=== PATIENT | male | born 1965 | race American Indian/Alaskan Native ===

== ENCOUNTER 2017-08-15 12:31 | Inpatient (IN) | payer MEDICAID, OTHER ==
--- NOTE | 2017-08-15 12:58 | C.PDOC ---
History Of Present Illness 52 yr old male with history of heroin, cocaine abuse, alcohol abuse, depression , presents to the ER requesting detox. Patient admits, was clean for 2 years, " had some problem with and started to use drugs again. Lost my job, homeless now". Patient admits to suicidal ideation. Otherwise, Pt denies fever, chills, known trauma or injury, headache, dizziness, chest pain, SOB, dyspnea, palpitation, abd. pain, nausea, vomiting, back pain, UTI sx. Ambulate to ED for evaluation, appears appropriate, not in nay apparent distress. Time Seen by Provider: 08/15/17 12:38 Chief Complaint (Nursing): Psychiatric Evaluation History Per: Patient History/Exam Limitations: no limitations Onset/Duration Of Symptoms: Days Past Medical History Reviewed: Historical Data, Nursing Documentation, Vital Signs Vital Signs: Last Vital Signs Temp 97.9 F 08/15/17 16:16 Pulse 60 08/15/17 16:16 Resp 20 08/15/17 16:16 BP 103/61 08/15/17 16:16 Pulse Ox 99 08/15/17 16:16 Family History: States: No Known Family Hx - Social History Hx Tobacco Use: Yes Hx Alcohol Use: Yes Hx Substance Use: Yes (Heroin and Cocaine) - Immunization History Hx Influenza Vaccination: No Hx Pneumococcal Vaccination: No Review Of Systems Except As Marked, All Systems Reviewed And Found Negative. Cardiovascular: Negative for: Chest Pain Respiratory: Negative for: Shortness of Breath Gastrointestinal: Negative for: Nausea, Vomiting Neurological: Negative for: Weakness, Numbness Psych: Positive for: Depression, Suicidal ideation Physical Exam - Physical Exam Appears: Non-toxic, No Acute Distress Skin: Warm, Dry, No Rash Head: Atraumatic, Normacephalic Eye(s): bilateral: PERRL Nose: No Flaring, No Discharge Oral Mucosa: Moist Throat: No Erythema, No Exudate, No Drooling Neck: Trachea Midline, No Midline Cervical Tenderness, No Paracervical Tenderness, No Step Off Deformity, Supple Cardiovascular: Rhythm Regular, No Murmur Respiratory: No Decreased Breath Sounds, No Rales, No Rhonchi, No Stridor, No Wheezing Gastrointestinal/Abdominal: Soft, No Tenderness, No Distention, No Guarding Back: No CVA Tenderness Extremity: Normal ROM, No Pedal Edema, No Deformity, No Swelling Neurological/Psych: Oriented x3, Normal Speech, Normal Motor, Normal Sensation, Normal Reflexes ED Course And Treatment - Laboratory Results Result Diagrams: 08/15/17 13:23 08/15/17 13:23 O2 Sat by Pulse Oximetry: 100 (RA) Pulse Ox Interpretation: Normal Progress Note: Pt remained stable during the ED evaluation. Blood work review and appears noraml. Pt is medically cleared for psych evaluation. After pt was evaluated by CRisis at 17:02, admission to psych floor s/o with Dx : Major depression, cocaine abuse arranged. 1:1 OBS dispo as patient will be moved upstairs. Medical Decision Making Medical Decision Making: PLAN: * Alcohol Serum * Drug Screen * CBC * CMP * Urinalysis Disposition - Disposition Disposition: HOSPITALIZED Disposition Time: 17:03 Condition: STABLE Forms: [facility] ([place]) - Clinical Impression Clinical Impression: Major depression, Cocaine dependence - PA / TYPE CASTER / Resident Statement MD/DO has reviewed & agrees with the documentation as recorded. - Scribe Statement The provider has reviewed the documentation as recorded by the Scribe Paula Fierro All medical record entries made by the Scribe were at my direction and personally dictated by me. I have reviewed the chart and agree that the record accurately reflects my personal performance of the history, physical exam, medical decision making, and the department course for this patient. I have also personally directed, reviewed, and agree with the discharge instructions and disposition.
[2017-08-15 13:26] LABS: BASO # 0.1 K/uL (0.0-0.2); BASO % 1.1 % (0.0-2.0); EOS # 0.1 K/uL (0.0-0.7); EOS % 1.3 % (0.0-4.0); HEMATOCRIT 41.7 % (35.0-51.0); LYMPH # 1.6 K/uL (1.0-4.3); MEAN CELL VOLUME 90.1 fL (80.0-94.0); MEAN CORPUSCULAR HGB CONC 32.2 g/dL (33.0-37.0); MEAN PLATELET VOLUME 7.2 fL (7.2-11.7); MONO # 0.5 K/uL (0.0-0.8); MONO % 10.2 % (0.0-10.0); NRBC % 0.2 % (0.0-2.0)
[2017-08-15 13:32] LABS: RBC URINE 2 /hpf (0-3); URINE BILIRUBIN NEGATIVE (NEGATIVE); URINE BLOOD 1+ (NEGATIVE); URINE COLOR Yellow (YELLOW); URINE GLUCOSE (UA) NORMAL (Normal); URINE KETONE TRACE mg/dL (NEGATIVE); URINE LEUKOCYTE ESTERASE NEG Leu/uL (Negative); URINE PROTEIN NEGATIVE (NEGATIVE); URINE UROBILINOGEN NORMAL mg/dL (0.2-1.0); WBC URINE < 1 /hpf (0-5)
[2017-08-15 14:03] LABS: ALCOHOL SERUM < 10 mg/dl (0-10); ALKALINE PHOSPHATASE 34 U/L (38-126); ALT/SGPT 39 U/L (21-72); AST/SGOT 32 U/L (17-59); BILIRUBIN,TOTAL 0.5 mg/dL (0.2-1.3); BLOOD UREA NITROGEN 8 mg/dL (9-20); CALCIUM 8.6 mg/dl (8.6-10.4); CARBON DIOXIDE 32 mmol/L (22-30); CHLORIDE 101 mmol/L (98-107); GFR AFRICAN-AMERICAN > 60; GLUCOSE,RANDOM 118 mg/dL (75-110); POTASSIUM 3.8 mmol/L (3.6-5.2); SODIUM 139 mmol/L (132-148); TOTAL PROTEIN 7.8 g/dL (6.3-8.3)
[2017-08-15 18:21] VITALS: O2SAT 97
--- NOTE | 2017-08-15 22:34 | PCM.BM ---
<Quinn Snyder - Last Filed: 08/16/17 02:18> Treatment Plan Problems - Problems identified on initial assessmt Depression Date Initiated: 08/15/17 Time Initiated: 20:00 Assessment reference: NA Status: Active Suicidal Ideation Date Initiated: 08/15/17 Time Initiated: 20:00 Assessment reference: NA Status: Monitor Opiates Abuse Date Initiated: 08/15/17 Time Initiated: 20:00 Assessment reference: NA Status: Active Treatment assets and liabiliti Patient Assests: good support system, negotiates basic needs, good past tx response Patient Liabilities: substance abuse (Cocaine, Heroin, Alcohol) - Milieu Protocol Maintain good personal hygiene: daily Encourage regular showers, daily Remind patient to perform daily oral care Conduct patient checks and document Observation sheet: Q15 minutes Maintain personal safety: every shift Educate patient to report safety concerns to staff, every shift Monitor environment for contraband/sharps Medication safety: Monitor for expected outcome, potential side effects: every shift, Assess barriers to learning: every shift, Assess readiness for medication education: every shift <Lauren Hanson - Last Filed: 08/17/17 11:20> Family Contact Family involvement: Famliy/SO not involved - Goals for Treatment Patient goals for treatment: "I want to go to rehab." Discharge/Continuing Care - Education Needs Education Needs: Patient Medication, Patient Coping Skills, Patient Placement options, Patient Community resources - Discharge Discharge Criteria: Tolerates medication w/o severe side effects, Free of Suicidal thoughts, No longer exhibiting s/s of withdrawal Discharge to:: Substance Abuse Rehab - Treatment Team Participation Discussed with Family/SO: No Was Patient/Family/SO present at Treatment Team Meeting: Yes <Esperanza Shaikh - Last Filed: 08/17/17 11:26> - Diagnosis (1) Major depression Status: Acute Interventions: 08/17/17 11:23 * Assess/adjust medications daily and /or as needed * See patient on an individual basis 7x/week to assess level of depression behaviors and stability * Discuss risks, benefits, side effects and alternatives of medications * (2) Cocaine dependence Status: Acute Interventions: 08/17/17 11:24 * Assess 7x/week regarding severity of withdrawal * Educate regarding risks, benefits, side effects and alternatives of medications * Use Motivational Interviewing for abstinence * Use CBT for relapse prevention * Medication management for withdrawal symptoms * Encourage medication assisted treatment *
--- NOTE | 2017-08-16 18:01 | PCM.PSYCH ---
Initial Psychiatric Evaluation - Initial Psychiatric Evaluation Type of Admission: Voluntary Legal Status: Capacity Chief Complaint (in patient's own words): "I'm depressed" History of Present Illness and Precipitating Events: Patient was a 52 year old, male with psychiatric hx of MDD and opioid dependence, was on Suboxone treatment, admitted in [facility] due to suicidal ideation with plan to "step in front of a truck", depression, substance abuse. Patient identified 'problems with my ' as the main precipitating factors. Patient reported current symptoms for the past 3 months. He reported worsening of his depressive symptoms since 1 month. Patient reported presence of visual hallucinations for the past 3 days. Patient reported seeing shadows. Patient reported tactile hallucinations for 3 days. Patient reported feeling 'bugs on his body' but unable to find any insects on him. Patient reported gustatory hallucinations stating "everything taste funny when I'm on this heroin and cocaine". However, he did not appeared internally preoccupied or responding to stimuli. He stated that his perceptual disturbance are better b/c he has not use cocaine today. He stated that he wants to be sober and want to quit heroin and cocaine. Patient reported current heroin, cocaine and alcohol use. Patient last used at 3 am this morning. Patient reported putting as much 'stuff' in his pipe before smoking with hopes of dying. Patient reported history of alcohol abuse in the maternal and paternal family of origin. Patient reported previous detox at [facility]. Patient reported history of inpatient psychiatric hospitalization at [facility] [place] [facility] Patient reported history of depression. Patient reported history of mental illness in the maternal family of origin. Patient reported having a cousin that committed suicide after killing his . 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 Patient refused medication for depression during outpatient and after discharge from [facility] due to the medication causing insomnia. Patient reported 1 previous suicide attempt while in his 30's by overdose (took a bottle of sleeping pills). Patient continues to report suicidal ideation in ER. He stated now he is feeling safe and improvement in his SI. Patient denied any history of homicidal ideations, attempts, gestures, plan or intent at the time of interview. Patient reported history of outpatient services for depression and substance abuse at [facility]. Patient prematurely discontinued treatment 3 months ago due to reported problems with his . Current Medications: Active Medications Generic Name Dose Route Start Last Admin Trade Name Freq PRN Reason Stop Dose Admin Clonidine HCl 0.1 mg 08/15/17 21:00 08/15/17 22:46 Catapres PO 0.1 mg Q8H PRN Administration autonomic instability, HTN Fluoxetine HCl 20 mg 08/16/17 10:00 08/16/17 10:25 Prozac PO 20 mg QAM TUSHAR Administration Hydroxyzine HCl 25 mg 08/15/17 21:00 Atarax PO Q6 PRN Anxiety Loperamide HCl 2 mg 08/15/17 22:00 Imodium PO Q8 PRN Diarrhea Methadone HCl 15 mg 08/16/17 12:45 08/16/17 12:44 Methadone PO 08/19/17 12:44 15 mg DAILY TUSHAR Administration Taper Ondansetron HCl 4 mg 08/15/17 22:00 Zofran Tab PO Q8 PRN Nausea/Vomiting Past Psychiatric History - Past Psychiatric History Previous Treatment History: Inpatient Prior Professional Help: detox and inpt and OPD psych hx Prior Psychiatric Treatment: please see HPI History of Abuse: denied History of ETOH/Drug Use: please see HPI History of Family Illness: maternal side relative had drug abuse, like cocaine use problems Pertinent Medical Hx (Current Medical&Sleep Prob, Allergies): Allergies Allergy/AdvReac Type Severity Reaction Status Date / Time No Known Allergies Allergy Verified 08/15/17 12:49 No Known Home Med [No Known Home Med] 01/21/15 denied Review of Systems - Review of Systems All systems: reviewed and no additional remarkable complaints except (HPI) - Constitutional Constitutional: Chills, Sweats, Malaise, Other (tiredness) - EENT Eyes: Discharge Ears: UNREMARKABLE Nose/Mouth/Throat: Nasal Congestion - Gastrointestinal Gastrointestinal: Abdominal Pain, Diarrhea - Genitourinary Genitourinary: UNREMARKABLE - Reproductive: Male Reproductive:Male: UNREMARKABLE - Musculoskeletal Musculoskeletal: Myalgias - Integumentary Integumentary: UNREMARKABLE - Neurological Neurological: UNREMARKABLE - Psychiatric Psychiatric: As Per HPI - Endocrine Endocrine: UNREMARKABLE Mental Status Examination - Personal Presentation Personal Presentation: Looks stated age, Dressed appropriate to season - Affect Affect: Constricted - Motor Activity Motor Activity: Psychomotor Retardation - Reliability in Providing Information Reliability in Providing Information: Good - Speech Speech: Organized - Mood Mood: Depressed, Anxious - Formal Thought Process Formal Thought Process: No Impairment - Hallucinations/Delusions Hallucinations: Visual, Other (tactile) - Obsessions/Compulsions Obsessions: No Compulsions: No - Cognitive Functions Orientation: Person, Place, Situation, Time Sensorium: Alert Attention/Concentration: Attentive Abstract Thinking: [place] Judgement: Intact, as evidence by: Good judgement Memory: Recent intact, as evidence by: Ability to recall events of the day - Risk Risk: Suicidal (plan to jump infront of truck/ traffic) - Strength & Assets Inventory Strength & Assets Inventory: Intelligence, Family support (sister), Employment history, Interests/hobbies, Spiritual affiliations, Cooperative - Limitations Limitations: Other (ch drug use) DSM 5 DX - DSM 5 DSM 5 Diagnosis: MDD, MODERATE, OPIOID USE DISORDER, OPIOID DEPENDENCE , OPIOID WITHDRAWAL COCAINE USE DISORDER - Recommended/Plan of Treatment Treatment Recommendations and Plan of Treatment: Continue current management and medications. Attend groups and activities Individual therapy Patient educated about risks, benefits, side effects & alternatives of meds. Pt verbalized understanding & agreed with the above. Therapy in milieu. Projected ELOS: 5-6 DAYS Prognosis: GOOD Discharge Plan and Discharge Criteria: PER FLOOR SW AND COMPLIANCE WITH TREATMENT
[2017-08-17] MEDS ORDERED: Influenza Vaccine 60 mcg/0.5 mL SYR (4YR UP) IM ONE (10:00)
--- NOTE | 2017-08-17 10:13 | PCM.PYCHPN ---
Psychiatric Progress Note - Psychiatric Progress Note Patient seen today, length of contact: 16 min Patient Chief Complaint: I am still experiencing withdrawal symptoms.' Medication Change: Yes (Methadone taper) Medical Record Reviewed: Yes Mental Status Examination - Cognitive Function Orientation: Person, Place, Situation, Time Memory: Intact Attention: WNL Concentration: Poor Association: WNL Fund of Knowledge: Poor - Mood Mood: Depressed, Anxious - Affect Affect: Constricted - Speech Speech: Soft - Formal Thought Process Formal Thought Process: No Impairment - Suicidal Ideation Suicidal Ideation: No - Homicidal Ideation Homicidal Ideation: No Goal/Treatment Plan - Goal/Treatment Plan Need for Continued Stay: Severe depression anxiety, Severe functional impairment Progress Toward Problem(s) and Goals/Treatment Plan: MDD recurrent, moderate Opioid use d/o, severe Opioid withdrawal Cocaine use severe Methadone taper Prozac 20 mg Continue current management and medications. Attend groups and activities Individual therapy Patient educated about risks, benefits, side effects & alternatives of meds. Pt verbalized understanding & agreed with the above. Therapy in milieu. - Smoking Cessation Smoking Cessation Initiated: No
--- NOTE | 2017-08-19 11:07 | PCM.PYCHPN ---
Psychiatric Progress Note - Psychiatric Progress Note Patient seen today, length of contact: 16 min Patient Chief Complaint: I am feeling little better.' Problems Identified/Issues Discussed: Patient seen and evaluated, chart reviewed and discussed with the nurse. Today patient still reports anxiety and irritability. He reports improvement in the withdrawal symptoms. He is looking forward to go to the rehab. He denies any feelings of hopelessness and helplessness and denies any suicidal ideation or homicidal ideation. He denies any auditory or visual hallucinations. He is taking medication and denied any side effects. He needs more time for stabilization. Supportive therapy and psychoeducation were given. Medication Change: Yes (Methadone taper) Medical Record Reviewed: Yes Mental Status Examination - Cognitive Function Orientation: Person, Place, Situation, Time Memory: Intact Attention: WNL Concentration: Poor Association: WNL Fund of Knowledge: Poor - Mood Mood: Depressed, Anxious - Affect Affect: Constricted - Speech Speech: Soft - Formal Thought Process Formal Thought Process: No Impairment - Suicidal Ideation Suicidal Ideation: No - Homicidal Ideation Homicidal Ideation: No Goal/Treatment Plan - Goal/Treatment Plan Need for Continued Stay: Severe depression anxiety, Severe functional impairment Progress Toward Problem(s) and Goals/Treatment Plan: MDD recurrent, moderate Opioid use d/o, severe Opioid withdrawal Cocaine use severe Prozac 20 mg Neurontin 100 gm PO BID Trazodone 50 mg Continue current management and medications. Attend groups and activities Individual therapy Patient educated about risks, benefits, side effects & alternatives of meds. Pt verbalized understanding & agreed with the above. Therapy in milieu. - Smoking Cessation Smoking Cessation Initiated: No
--- NOTE | 2017-08-20 22:00 | PCM.PYCHPN ---
Psychiatric Progress Note - Psychiatric Progress Note Patient seen today, length of contact: 16 min Patient Chief Complaint: "Not doing good" Problems Identified/Issues Discussed: The pt is seen, chart reviewed, case discussed with staff. Support given, CBT and NM used briefly No new symptoms reported, improving slowly and needs more time No SEs from medications, risks discussed. Medication Change: No Medical Record Reviewed: Yes Mental Status Examination - Cognitive Function Orientation: Person, Place, Situation, Time Memory: Intact Attention: WNL Concentration: Poor Association: WNL Fund of Knowledge: Poor - Mood Mood: Depressed, Anxious - Affect Affect: Constricted - Speech Speech: Soft - Formal Thought Process Formal Thought Process: No Impairment - Suicidal Ideation Suicidal Ideation: No - Homicidal Ideation Homicidal Ideation: No Goal/Treatment Plan - Goal/Treatment Plan Need for Continued Stay: Discharge may exacerbated symptoms, Severe functional impairment Progress Toward Problem(s) and Goals/Treatment Plan: Continue medications Support and psychoeducation daily Attend groups and activities daily After care planning by FLORIN
--- NOTE | 2017-08-21 09:31 | PCM.PYCHPN ---
Psychiatric Progress Note - Psychiatric Progress Note Patient seen today, length of contact: 16 min Patient Chief Complaint: I am still experiencing withdrawal symptoms.' Problems Identified/Issues Discussed: Patient seen and evaluated, chart reviewed and discussed with the nurse. Patient reports improvement in his mood and reports improvement in the anxiety symptoms. He denies any auditory or visual hallucinations. He remained calm and cooperative. He denies any feelings of hopelessness and helplessness. He is taking medication and denies any side effects. He needs more time for stabilization. Supportive therapy and psychoeducation were given. Medication Change: No Medical Record Reviewed: Yes Mental Status Examination - Cognitive Function Orientation: Person, Place, Situation, Time Memory: Intact Attention: WNL Concentration: Poor Association: WNL Fund of Knowledge: Poor - Mood Mood: Depressed, Anxious - Affect Affect: Constricted - Speech Speech: Soft - Formal Thought Process Formal Thought Process: No Impairment - Suicidal Ideation Suicidal Ideation: No - Homicidal Ideation Homicidal Ideation: No Goal/Treatment Plan - Goal/Treatment Plan Need for Continued Stay: Discharge may exacerbated symptoms, Severe functional impairment Progress Toward Problem(s) and Goals/Treatment Plan: MDD recurrent, moderate Opioid use d/o, severe Opioid withdrawal Cocaine use severe Methadone taper Prozac 20 mg Trazodone 50mg Gabapentin 100 mg PO TID Continue current management and medications. Attend groups and activities Individual therapy Patient educated about risks, benefits, side effects & alternatives of meds. Pt verbalized understanding & agreed with the above. Therapy in milieu. - Smoking Cessation Smoking Cessation Initiated: No
--- NOTE | 2017-08-23 05:34 | PCM.PYCHPN ---
Psychiatric Progress Note - Psychiatric Progress Note Patient seen today, length of contact: 15 min Patient Chief Complaint: "OK" Problems Identified/Issues Discussed: The pt is seen, chart reviewed, case discussed with staff. Support given, CBT used briefly No new symptoms reported, improving slowly and needs more time No SEs from medications, risks discussed. After care discussed Medication Change: No Medical Record Reviewed: Yes Mental Status Examination - Cognitive Function Orientation: Person, Place, Situation, Time Memory: Intact Attention: WNL Concentration: Poor Association: WNL Fund of Knowledge: Poor - Mood Mood: Depressed, Anxious - Affect Affect: Constricted - Speech Speech: Soft - Formal Thought Process Formal Thought Process: No Impairment - Suicidal Ideation Suicidal Ideation: No - Homicidal Ideation Homicidal Ideation: No Goal/Treatment Plan - Goal/Treatment Plan Need for Continued Stay: Discharge may exacerbated symptoms, Severe functional impairment Progress Toward Problem(s) and Goals/Treatment Plan: Continue medications Support and psychoeducation daily Attend groups and activities daily After care planning by FLORIN
--- NOTE | 2017-08-23 12:40 | PCM.PYCHPN ---
Psychiatric Progress Note - Psychiatric Progress Note Patient seen today, length of contact: 15 min Patient Chief Complaint: I am still experiencing withdrawal symptoms.' Problems Identified/Issues Discussed: Patient seen and evaluated, chart reviewed and discussed with the nurse. Patient reports improvement in his mood and reports improvement in the anxiety symptoms. He denies any auditory or visual hallucinations. He remained calm and cooperative. He denies any feelings of hopelessness and helplessness. He is taking medication and denies any side effects. He needs more time for stabilization. Supportive therapy and psychoeducation were given. Medication Change: No Medical Record Reviewed: Yes Mental Status Examination - Cognitive Function Orientation: Person, Place, Situation, Time Memory: Intact Attention: WNL Concentration: Poor Association: WNL Fund of Knowledge: Poor - Mood Mood: Depressed, Anxious - Affect Affect: Constricted - Speech Speech: Soft - Formal Thought Process Formal Thought Process: No Impairment - Suicidal Ideation Suicidal Ideation: No - Homicidal Ideation Homicidal Ideation: No Goal/Treatment Plan - Goal/Treatment Plan Need for Continued Stay: Discharge may exacerbated symptoms, Severe functional impairment Progress Toward Problem(s) and Goals/Treatment Plan: MDD recurrent, moderate Opioid use d/o, severe Opioid withdrawal Cocaine use severe Methadone taper Prozac 20 mg Trazodone 50mg Gabapentin 100 mg PO TID Continue current management and medications. Attend groups and activities Individual therapy Patient educated about risks, benefits, side effects & alternatives of meds. Pt verbalized understanding & agreed with the above. Therapy in milieu.
[2017-08-24 07:21] VITALS: BP 116/81; PULSE 86; RESP 16; TEMP 98.3
--- NOTE | 2017-08-24 09:33 | PCM.PYCHDC ---
Mental Status Examination - Mental Status Examination Orientation: Person, Place, Situation, Time Memory: Intact Mood: Neutral Affect: Constricted Speech: Soft Attention: WNL Concentration: WNL Association: WNL Fund of Knowledge: WNL Formal Thought Process: No Impairment Description of patient's judgement and insight: good,fair Psychotic Thoughts and Behaviors: denies any AVH Suicidal Ideation: No Current Homicidal Ideation?: No Discharge Summary - Discharge Note Reason for Hospitalization: Patient was a 52 year old, male with psychiatric hx of MDD and opioid dependence, was on Suboxone treatment, admitted in [facility] due to suicidal ideation with plan to "step in front of a truck", depression, substance abuse. Patient identified 'problems with my ' as the main precipitating factors. Patient reported current symptoms for the past 3 months. He reported worsening of his depressive symptoms since 1 month. Patient reported presence of visual hallucinations for the past 3 days. Patient reported seeing shadows. Patient reported tactile hallucinations for 3 days. Patient reported feeling 'bugs on his body' but unable to find any insects on him. Patient reported gustatory hallucinations stating "everything taste funny when I'm on this heroin and cocaine". However, he did not appeared internally preoccupied or responding to stimuli. He stated that his perceptual disturbance are better b/c he has not use cocaine today. He stated that he wants to be sober and want to quit heroin and cocaine. Patient reported current heroin, cocaine and alcohol use. Patient last used at 3 am this morning. Patient reported putting as much 'stuff' in his pipe before smoking with hopes of dying. Patient reported history of alcohol abuse in the maternal and paternal family of origin. Patient reported previous detox at [facility]. Patient reported history of inpatient psychiatric hospitalization at [facility] [place] [facility] Patient reported history of depression. Patient reported history of mental illness in the maternal family of origin. Patient reported having a cousin that committed suicide after killing his . Patient reported history of outpatient services at [facility] in [place], however, prematurely discontinued 3 months ago after problems with his , loss of tour bus driver/guide license, apartment and car. Patient refused medication for depression during outpatient and after discharge from [facility] due to the medication causing insomnia. Patient reported 1 previous suicide attempt while in his 30's by overdose (took a bottle of sleeping pills). Patient continues to report suicidal ideation in ER. He stated now he is feeling safe and improvement in his SI. Patient denied any history of homicidal ideations, attempts, gestures, plan or intent at the time of interview. Consultations:: List each consultation separately and include: 1. Reason for request. 2. Findings. 3. Follow-up Summary of Hospital Course include:: 1. Description of specific treatment plan utilized for patients during their course of treatmen. 2. Summarize the time- course for resolution of acute symptoms and/or regressed behaviors. 3. Describe issues identified and worked on during hospitalization. 4. Describe medication utilized. 5. Describe medical problems identified and treated. 6. Reassessment of suicide risk Summary of Hospital Course: During the course of his stay, patient (pt) started progressively improving and he no longer remained irritable, depressed, and suicidal. His mood was improved and he started attending groups and meetings and started socializing. Patient denied any feelings of hopelessness, helplessness, and worthlessness, denied any problem with the sleep or appetite, denied suicidal ideation or homicidal ideation. Pt denied any auditory or visual hallucinations. Some changes were made in his current medications and patient was discharged on following medications. He tolerated these medications very well and denied any side effects. CBT and RI were used. patient was discharged to [facility] in [place] for outpatient treatment. - Diagnosis (1) Major depression Status: Acute (2) Cocaine dependence Status: Acute - Final Diagnosis (DSM 5) Condition upon Discharge: STABLE DSM 5: MDD, moderate, Opioid use disorder, opioid dependence , opioid withdrawal Cocaine use disorder Disposition: HOME/ ROUTINE Follow-up Treatment Plan: Education: Pt was educated and counseled about the risks and benefits of taking and not taking medications. Pt was educated and counseled about the risks of drinking and abusing drugs. Pt was educated and counseled to go to the ER or call 911 if pt develop suicidal ideation or homicidal ideation, worsening of symptoms or severe side effects of the meds. Prescriptions/Medication Reconciliation: FLUoxetine [Prozac] 20 mg PO QAM #30 cap Gabapentin [Neurontin] 100 mg PO BID #60 cap traZODone [Desyrel] 50 mg PO HS #30 tab - Smoking Cessation Smoking Cessation Medication prescribed: No - Antipsychotic Medications Pt discharged on 2 or more routine antipsychotic medications: No
== END 2017-08-24 11:00 | disposition home or self-care (01) | DRG 430 ==
LOC: C.ER 12:31 → C.5E 17:04
PROVIDERS: ADMIT Psychiatry & Neurology Psychiatry; ATTEND Psychiatry & Neurology Psychiatry
PROC: GZ3ZZZZ Medication Management (ICD-10-PCS; principal; 2017-08-15)
PROC: HZ2ZZZZ Detoxification Services for Substance Abuse Treatment (ICD-10-PCS; 2017-08-15)
PROC: HZ59ZZZ Individual Psychotherapy for Substance Abuse Treatment, Supportive (ICD-10-PCS; 2017-08-15)
PROC: GZHZZZZ Group Psychotherapy (ICD-10-PCS; 2017-08-15)
PROC: GZ56ZZZ Individual Psychotherapy, Supportive (ICD-10-PCS; 2017-08-15)
DX: F33.1 Major depressive disorder, recurrent, moderate (principal); R45.851 Suicidal ideations; F14.20 Cocaine dependence, uncomplicated; F11.23 Opioid dependence with withdrawal; F41.9 Anxiety disorder, unspecified; G47.00 Insomnia, unspecified; F10.10 Alcohol abuse, uncomplicated; F17.210 Nicotine dependence, cigarettes, uncomplicated; Z59.0 Homelessness; Z79.899 Other long term (current) drug therapy; Z91.5 Personal history of self-harm

== ENCOUNTER 2017-11-02 11:12 | Emergency (ER) | payer MEDICAID, OTHER ==
[2017-11-02 11:42] VITALS: BP 113/80; RESP 18; TEMP 98.6
--- NOTE | 2017-11-02 14:43 | C.PDOC ---
History Of Present Illness 52 year old male with history of substance abuse and alcoholism presents to the ED requesting detox. Patient states his last use was yesterday at 05:00. Patient denies fever, chills, headache, nausea, vomit, diarrhea, withdrawal symptoms. Time Seen by Provider: 11/02/17 13:09 Chief Complaint (Nursing): Substance Abuse History Per: Patient History/Exam Limitations: no limitations Onset/Duration Of Symptoms: Hrs Current Symptoms Are (Timing): Gone Suicide/Self Injury Attempted (Context): None Modifying Factor(s): Alcohol Associated Symptoms: denies: Depression, Suicidal Thoughts, Suicidal Plan Involuntary Hold By: None Recent travel outside of the [place]: No Additional History Per: Patient Past Medical History Reviewed: Historical Data, Nursing Documentation, Vital Signs Vital Signs: Last Vital Signs Temp 98.6 F 11/02/17 14:45 Pulse 64 11/02/17 14:45 Resp 18 11/02/17 14:45 BP 113/80 11/02/17 14:45 Pulse Ox 100 11/02/17 19:06 - Medical History PMH: No Chronic Diseases Denies: Diabetes (Patient denied), Hepatitis (Patient denied) Comment Only: HIV (Patient denied), HTN (Patient denied), Seizures (Patient denied), Sexually Transmitted Disease (Patient denied) Surgical History: No Surg Hx - [facility] Procedures DETOXIFICATION SERVICES FOR SUBSTANCE ABUSE TREATMENT (08/15/17) GROUP PSYCHOTHERAPY (08/15/17) INDIV PSYCHOTHERAPY FOR SUBSTANCE ABUSE TREATMENT, SUPPORT (08/15/17) INDIVIDUAL PSYCHOTHERAPY, SUPPORTIVE (08/15/17) MEDICATION MANAGEMENT (08/15/17) Family History: States: Unknown Family Hx - Social History Hx Tobacco Use: Yes Hx Alcohol Use: Yes Hx Substance Use: Yes - Immunization History Hx Influenza Vaccination: No Hx Pneumococcal Vaccination: No Review Of Systems Constitutional: Negative for: Fever, Chills Cardiovascular: Negative for: Chest Pain Respiratory: Negative for: Shortness of Breath Gastrointestinal: Negative for: Nausea, Vomiting, Abdominal Pain Skin: Negative for: Rash Neurological: Negative for: Weakness, Numbness Psych: Negative for: Depression, Suicidal ideation Physical Exam - Physical Exam Appears: Non-toxic, No Acute Distress Skin: Normal Color, Warm, Dry Head: Atraumatic, Normacephalic Eye(s): bilateral: Normal Inspection Nose: No Discharge, No Deformity Oral Mucosa: Moist Neck: Normal ROM, Supple Chest: Symmetrical Cardiovascular: Rhythm Regular, No Murmur Respiratory: Normal Breath Sounds, No Rales, No Rhonchi, No Wheezing Gastrointestinal/Abdominal: Soft, No Tenderness, No Guarding, No Rebound Extremity: Normal ROM, No Tenderness, No Swelling Neurological/Psych: Oriented x3, Normal Speech, Normal Cognition Gait: Steady ED Course And Treatment O2 Sat by Pulse Oximetry: 100 (On RA) Pulse Ox Interpretation: Normal Medical Decision Making Medical Decision Making: Impression: alcohol and substance detox There were no detox beds available at this time, patient agreed with d/c plan and will follow up with detox in the future. Disposition - Disposition Disposition: HOSPITALIZED Disposition Time: 14:43 Condition: STABLE Instructions: Abuse of Alcohol (ED) Forms: General Discharge Instructions - POA Present On Arrival: None - Clinical Impression Clinical Impression: Drug abuse - Scribe Statement The provider has reviewed the documentation as recorded by the Scribe Mateo Castro All medical record entries made by the Scribe were at my direction and personally dictated by me. I have reviewed the chart and agree that the record accurately reflects my personal performance of the history, physical exam, medical decision making, and the department course for this patient. I have also personally directed, reviewed, and agree with the discharge instructions and disposition.
[2017-11-02 15:11] VITALS: PULSE 64
[2017-11-02 19:02] VITALS: O2SAT 100
== END 2017-11-02 14:45 | disposition home or self-care (01) ==
LOC: C.ER 11:12
DX: F19.10 Other psychoactive substance abuse, uncomplicated (principal)